=== PATIENT | female | born 1955 | race Two or more races ===

== ENCOUNTER 2022-05-28 12:20 | Day surgery (SDC) | payer OTHER | END 2022-05-29 02:00 | disposition home or self-care (01) | LOC: CIR.AMB 12:20 | PROVIDERS: ATTEND Student in an Organized Health Care Education/Training Program | DX: D06.0 Carcinoma in situ of endocervix (principal); Z20.822 Contact with and (suspected) exposure to COVID-19; Z88.6 Allergy status to analgesic agent; F17.210 Nicotine dependence, cigarettes, uncomplicated; E11.9 Type 2 diabetes mellitus without complications ==